=== PATIENT | female | born 1945 | race Caucasian/White ===

== ENCOUNTER 2019-03-14 02:32 | Emergency (ER) | payer BC ==
[~2019-03-14] VITALS: Ht 167.6 cm; Wt 90.7 kg
[2019-03-14 02:32] VITALS: BP 176/87
--- NOTE | 2019-03-14 02:32 | NUR ---
TO BED #01 BROUGHT IN BY AMBULANCE
--- NOTE | 2019-03-14 02:40 | NUR ---
73 [place] [place] AND SUSPECTED UTI. PT REPORTS TAKING DOXYCYCLINE 200MG X1 WEEK FOR CELLULITIS OF THE LT LEG. PT REPORTS NO URINARY COMPLAINTS AT THIS TIME. PT SEATED UPRIGHT ON BED. WILL CONTINUE TO MONITOR.
[2019-03-14] MEDS ORDERED: NACL 0.9% 1,000 ML IV ONE (03:05)
[2019-03-14] MEDS ORDERED: hydrALAZINE 20 MG/ML VIAL IVP ONE (03:05)
--- NOTE | 2019-03-14 03:11 | NUR ---
PT REFUSED IV INSERTION. DR. MICHELE MADE AWARE.
[2019-03-14] MEDS ORDERED: cloNIDine 0.1 MG TAB PO ONE (03:15)
--- NOTE | 2019-03-14 03:17 | NUR ---
BP 149/[address] MICHELE HOLD CLONIDINE FOR NOW.
--- NOTE | 2019-03-14 03:30 | NUR ---
PHLEB AT BEDSIDE.
--- NOTE | 2019-03-14 04:00 | NUR ---
PT VERBALLY ABUSIVE, STATED CONTINTUOUSLY "YOU ARE RACIST AND DISRESPECTFUL. DO NOT TOUCH ME. I DONT WANT ANYTHING FROM YOU."
[2019-03-14 04:02] LABS: BASOPHILS % (AUTO) 0.2 % (0.0-2.0); EOSINOPHILS # (AUTO) 0.2 K/uL (0-0.4); EOSINOPHILS % (AUTO) 2.4 % (0.0-4.0); HEMATOCRIT 39.8 % (36-48); HEMOGLOBIN 13.1 g/dL (12.0-16.0); LYMPHOCYTES # (AUTO) 2.4 K/uL (2.5-16.5); LYMPHOCYTES % (AUTO) 29.4 % (20.5-51.1); MEAN CORPUSCULAR HEMOGLOBIN 29 pg (27-31); MEAN CORPUSCULAR HGB CONC 33 g/dL (33-37); MEAN CORPUSCULAR VOLUME 88.4 fL (80-94); MONOCYTES # (AUTO) 0.8 K/uL (0.8-1.0); MONOCYTES % (AUTO) 10.1 % (1.7-9.3); NEUTROPHILS # (AUTO) 4.6 K/uL (1.8-7.7); NEUTROPHILS % (AUTO) 57.9 % (42.2-75.2); PLATELET COUNT (AUTO) 232 K/uL (140-450); RED BLOOD CELL COUNT(AUTO) 4.51 MIL/uL (4.20-5.40); RED CELL DISTRIBUTION WIDTH 14.3 % (11.6-13.7)
[2019-03-14 04:04] LABS: APPEARANCE,URINE CLEAR (CLEAR); BILIRUBIN,URINE NEGATIVE (NEGATIVE); BLOOD, URINE NEGATIVE (NEGATIVE); COLOR,URINE YELLOW (YELLOW); LEUKOCYTE ESTERASE ,URINE 1+ (NEGATIVE); NITRITE, URINE NEGATIVE (NEGATIVE); UGLUCOSE NEGATIVE (NEGATIVE)
[2019-03-14 04:19] LABS: RBC,URINE 0-5 /HPF (0-5)
[2019-03-14 04:20] LABS: WBC,URINE 20-60 /HPF (0-5)
[2019-03-14 04:25] LABS: ANION GAP 12.8 (8-16); CARBON DIOXIDE 27.4 mmol/L (21-32); CHLORIDE 105 mmol/L (98-107); GLUCOSE 113 mg/dL (74-106); POTASSIUM 4.2 mmol/L (3.5-5.1); SODIUM SERUM 141 mmol/L (136-145); UREA NITROGEN, BLOOD 30 mg/dL (7-18)
[2019-03-14 04:30] LABS: ALBUMIN 3.8 g/dL (3.4-5.0); ASPARTATE AMINOTRANSFERASE 19 U/L (15-37); TOTAL BILIRUBIN 0.4 mg/dL (0.0-1.0)
[2019-03-14] MEDS ORDERED: NITROFURANTOIN 100 MG CAP PO ONE (04:45)
--- NOTE | 2019-03-14 04:45 | NUR ---
PT OFFERED BLANKET AND ASKED IF SHE NEEDED ANYTHING AT THIS TIME TO WHICH PT STATED "I'M FINE I DO NOT NEED ANYTHING." PT SEATED UPRIGHT IN BED.
--- NOTE | 2019-03-14 04:59 | NUR ---
PT UP FOR DISCHARGE. PLACED CALL TO [facility] WITH NO ANSWER AT THIS TIME.
--- NOTE | 2019-03-14 05:02 | NUR ---
PATIENT SPIT OUT MACROBID INTO CUP AND REFUSED MEDICATION. ERMD MADE AWARE.
--- NOTE | 2019-03-14 05:15 | NUR ---
PT REFUSED TO VITALS AT THIS TIME. WILL ATTEMPT AGAIN.
[2019-03-14 05:35] VITALS: BP 143/81
--- NOTE | 2019-03-14 05:36 | NUR ---
PT SEATED UPRIGHT. VSS. WILL CONTINUE TO MONITOR.
--- NOTE | 2019-03-14 05:52 | NUR ---
PT NOTIFIED THAT TRANSPORTATION HAS BEEN ARRANGED AND ETA IS 1000 TO WHICH PT STATED "OKAY, NOW GO AWAY."
--- NOTE | 2019-03-14 06:11 | NUR ---
CALLED [facility], NO ANSWER AT THIS TIME. WILL ATTEMPT AGAIN AT LATER TIME.
--- NOTE | 2019-03-14 06:57 | NUR ---
PT SEEN ROAMING OUTSIDE OF ROOM. PT REMINDED TO REMAIN IN ROOM FOR PT PRIVACY.
--- NOTE | 2019-03-14 07:03 | NUR ---
SPOKE WITH [facility] WHO STATED THEY DO NOT PROVIDED TRANSPORTATION ON THE WEEKENDS.
--- NOTE | 2019-03-14 07:05 | NUR ---
Chandu pena in ED - 03/14/19 at 0710 by SONU BEDSIDE REPORT GIVEN TO GURMEET COSBY.TRANSFER OF CARE AT THIS TIME.
--- NOTE | 2019-03-14 07:05 | NUR ---
BEDSIDE REPORT GIVEN TO GURMEET HOWARD. TRANSFER OF CARE AT THIS TIME.
--- NOTE | 2019-03-14 07:10 | NUR ---
PATIENT IS SITTING OUTSIDE BY THE ROOM DOOR IN A WHEELCHAIR, REFUSED TO CHECK VITAL SIGNES, REFUSED TO WAIT INSIDE THE ROOM. NO S/S OF DISTRESS, QUIET AND CALM AT THIS TIME.
--- NOTE | 2019-03-14 07:30 | NUR ---
OFFERED BREAKFAST, PATIENT REFUSED.
--- NOTE | 2019-03-14 07:35 | NUR ---
BREAKFAST TRAY OFFERED. PT STATED "I REFUSE, BUT THANK YOU" INFORMED PT THAT TRAY WOULD BE AVAILABLE WHEN/IF SHE CHANGED HER MIND.
--- NOTE | 2019-03-14 08:00 | NUR ---
PATIENT WALKING AROUND WITH WALKER, OFFERED ASSIST, PATIENT REFUSED. STILL WAITING FOR CRANE OILER.
--- NOTE | 2019-03-14 09:00 | NUR ---
PATIENT WALKING AROUND AT ER FLOOR, ASKING IF SHE NEEDS HELP AND WALKED HER BACK TO ROOM.
--- NOTE | 2019-03-14 10:00 | NUR ---
SPOKE WITH PATIENT WITH DR GAONA AND [employer] CONSULTANT. PT STATED "IM NOT GOING IN THAT WHEELCHAIR WITH HER".
--- NOTE | 2019-03-14 10:00 | NUR ---
PATIENT REFUSED WHEELCHAIR TRANSPORT WITH TRANSPORTATION SERVICES, DR. GAONA AND CHARGE NURSE AND FAMILY WELFARE SOCIAL WORK PROFESSOR NOTIFIED.
--- NOTE | 2019-03-14 10:02 | NUR ---
DR. GAONA SPOKE TO PATIENT, PATIENT WALKED OUT BY HERSELF WITH STEADY GAIT, REFUSED TO SIGN DISCHARGE PAPER AND REFUSED TO TAKE PRESCRIBTION, DR. GAONA AWARE.
--- NOTE | 2019-03-14 10:03 | NUR ---
DR. GAONA AWARE PATIENT ELOPED AT THIS TIME. PER DR. GAONA ,"OK JUST LET HER GO."
--- NOTE | 2019-03-14 10:03 | NUR ---
DR GAONA AWARE OF PT STATUS AND STATED "OKAY JUST LET HER GO THEN"
--- NOTE | 2019-03-14 10:05 | NUR ---
[facility] INFORMED OF PATIENT REFUSAL TO GO WITH [facility]SPORT AND STAFF AT [facility] MADE AWARE OF PT'S ELOPEMENT OF FACILITY.
--- NOTE | 2019-03-16 16:32 | NUR ---
POSITIVE URINE CULTURE FINAL---RESISTANT TO MACROBID WHICH WAS PRESCRIBED. SPOKE WITH MITUL FROM [facility] AND FAXED OVER POSITIVE URINE RESULTS TO [phone] REQUESTED BY THEM. AWARE
== END 2019-03-14 10:02 | disposition home or self-care (01) ==
LOC: MED 02:32
DX: N39.0 Urinary tract infection, site not specified (principal); I10 Essential (primary) hypertension; Z88.0 Allergy status to penicillin; Z88.5 Allergy status to narcotic agent; Z88.2 Allergy status to sulfonamides; Z88.1 Allergy status to other antibiotic agents
CPT/HCPCS: 36415; 80053; 81001; 83605; 85025; 87040; 87086; 87186; 99283